=== PATIENT | female | born 1980 | race Caucasian/White ===

== ENCOUNTER → 2020-11-23 15:01 | Outpatient (CLI) | payer SELFPAY ==
--- NOTE | ~2020-11-23 | MM_ITS ---
EXAMINATION: MM screening tanya BI w zonia HISTORY: Screening TECHNIQUE: Craniocaudal and mediolateral oblique 3-D tomosynthesis images were obtained and synthetic 2-D images were generated. CAD analysis was submitted and interpreted. COMPARISON: No prior mammogram is available for comparison at this institution. BREAST PARENCHYMAL COMPOSITION: There are scattered areas of fibroglandular density. FINDINGS: There is no evidence of suspicious mass, calcification, or architectural distortion to sugg est malignancy in either breast. There has been no suspicious interval change. IMPRESSION: 1. No mammographic evidence of malignancy. 2. Recommend routine screening mammography in one year. BI-RADS Category 1: Negative Reviewed, dictated and finalized at location A.
--- NOTE | ~2020-11-23 | US_ITS ---
EXAMINATION: US pelvic complete EXAM DATE: 11/23/2020 15:22 INDICATION: N85.2 Enlarged uterus on exam. History of fibroids. TECHNIQUE: Pelvic transabdominal sonogram was performed. There are multiple grayscale and Doppler im ages available for interpretation. Comparison is made to prior examination from 09/07/2010. FINDINGS: Uterus measures 3.5 x 3.0 x 2.3 cm, anterior fundal fibroid measuring up to 3.5 cm. Endome trial stripe measures 8 mm, within normal limits. There is no free pelvic fluid. Right adnexa: The ovary measures 3.0 x 2.0 x 3.4 cm and is morphologically normal. Ovarian vascular f low confirmed. Left adnexa: The ovary measures 3.3 x 1.6 x 2.6 cm and is morphologically normal. Ovarian vascular fl ow confirmed. The fibroid above appears to have developed compared to 2010. IMPRESSION: Anterior fundal 3.5 cm fibroid. Reviewed, dictated and finalized at location A.
== END ==
PROVIDERS: Visit Provider Nurse Practitioner
DX: N85.2 Hypertrophy of uterus (principal); Z12.31 Encounter for screening mammogram for malignant neoplasm of breast; D25.9 Leiomyoma of uterus, unspecified
CPT/HCPCS: 76856; 77063; 77067

== ENCOUNTER 2023-11-04 09:49 | Emergency (ER) | payer OTHER, SELFPAY ==
[2023-11-04 10:04] VITALS: BP 156/110; PULSE 86; RESP 16; TEMP 37.2; O2SAT 100
--- NOTE | 2023-11-04 10:14 | ED.URI ---
HPI - URI/Sore Throat General Chief Complaint: Upper Respiratory Infection Stated Complaint: congestion Time Seen by Provider: 11/04/23 10:14 Source: patient and RN notes reviewed Mode of arrival: ambulatory Limitations: no limitations History of Present Illness HPI Narrative: 43 y/o female presented for c/o hoarse voice for 4 days, associated with nasal congestion, post nasal drainage causing sore throat, mild cough x2 weeks. Started with fever and chills which has improved. Endorses 1-2 days of brief improvement before symptoms returned. Denies shortness of breath, wheezing nausea, vomiting, diarrhea or lethargy. Taking Sudafed, hot tea, Delsym, alkaselzter. endorses elevated BP readings at home, and is scheduled to follow-up with her PCP within a week. MD elicited complaint: cough Related Data Home Medications Medication Instructions Recorded Confirmed lisinopril 20 mg tablet 20 mg PO DAILY 11/04/23 11/04/23 Allergies Allergy/AdvReac Type Severity Reaction Status Date / Time No Known Allergies Allergy Verified 11/04/23 10:16 Review of Systems Review of Systems: CONSTITUTIONAL: Endorses malaise, denies chills, sweats, fever EYES: Denies visual changes, redness, or discharge ENT: Reports rhinorrhea, congestion, sinus pain, sore throat CARDIOVASCULAR: Denies chest pain, palpitations, edema RESPIRATORY: Reports cough, post nasal drainage. Denies dyspnea GASTROINTESTINAL: Denies abdominal pain, nausea, vomiting, diarrhea SKIN: Denies rash or itching MUSCULOSKELETAL: Denies myalgia PMFSH Past Medical History Medical History (Updated 11/04/23 @ 10:25 by Jennifer Silva APRN) HTN (hypertension) Family History Family History Other Family history of malignant neoplasm of male breast Social History Social History Smoking status: Never smoker Second hand tobacco smoke exposure: No Alcohol intake: current Exam Narrative: GENERAL:mildly ill-appearing, nontoxic no acute distress. EYES: PERRLA, conjunctivae clear ENT: Mucous membranes moist. Mild maxillary sinus TTP. TMs pearly veronica with dull light reflex bilaterally; no tragal tenderness. Hoarse voice. Oropharynx not erythematous without lesions or exudate, no drooling, no trismus, uvula midline. No tripod positioning, muffled voice, soft palate or pharyngeal wall bulging NECK: Supple. No lymphadenopathy CHEST: Clear to auscultation, breath sounds equal. No wheezing, rhonchi, rales, or stridor. No respiratory distress, speaks in full sentences. HEART: Regular rate and rhythm. No murmur heard. SKIN: Warm, dry, no rash. NEURO: Alert and oriented x3. PSYCH: Normal mood and affect Course Course Emergency Course: Patient is aware of diagnosis, understands and agrees to treatment plan. Anticipatory guidance given. Patient agrees to follow-up as directed and is aware of reasons to seek care at the emergency department. Portions of this record may have been created with voice recognition software Level of Care: Express Care Visit Vital Signs Vital signs: Vital Signs Temperature 98.9 F 11/04/23 10:04 Pulse Rate 86 11/04/23 10:04 Respiratory Rate 16 11/04/23 10:04 Blood Pressure 156/110 H 11/04/23 10:04 Pulse Oximetry 100 11/04/23 10:04 Oxygen Delivery Room Air 11/04/23 10:04 Temperature 98.9 F 11/04/23 10:04 Pulse Rate 86 11/04/23 10:04 Respiratory Rate 16 11/04/23 10:04 Blood Pressure 156/110 H 11/04/23 10:04 Pulse Oximetry 100 11/04/23 10:04 Oxygen Delivery Room Air 11/04/23 10:04 reviewed MDM - URI/Sore Throat MDM Narrative Medical decision making narrative: BP elevated, she is following with her PCP this week regarding elevated readings. Discussed physical exam findings Consistent with bacterial sinusitis given brief improvement. Rx abx. Advised supportive measures and si
== END 2023-11-04 10:26 | disposition home or self-care (01) ==
PROVIDERS: Emergency Provider Nurse Practitioner Family; PCP Family Medicine
DX: J32.9 Chronic sinusitis, unspecified (principal); I10 Essential (primary) hypertension
CPT/HCPCS: 99213; G0463

== ENCOUNTER 2023-11-15 01:11 | Emergency (ER) | payer OTHER, SELFPAY ==
[2023-11-15 01:16] VITALS: BP 162/110; PULSE 84; RESP 16; TEMP 37; O2SAT 100
[2023-11-15 01:59] LABS: Strep Group A RT-PCR NOT DETECTED (Negative)
[2023-11-15 02:11] LABS: Influenza A QL RT-PCR Negative (Negative); Influenza B QL RT-PCR Negative (Negative); RSV RNA, RT-PCR Negative (Negative); SARS-CoV-2 RNA PCR Negative (Negative)
--- NOTE | 2023-11-15 02:53 | ED.GENADULT ---
HPI - General Adult General Chief complaint: Unspecified Stated complaint: sore throat Time Seen by Provider: 11/15/23 02:37 History of Present Illness HPI narrative: Patient is a 43-year-old female who presents the emergency department this evening complaining of a sore throat. Patient states that her symptoms started this morning when she woke up and noticed that his throat was itchy. Throughout the day, patient is sore throat continued to worse finally she decided to come to the emergency department for further evaluation. Patient states that approximately 2 weeks ago she went to an urgent care due to an upper respiratory infection and at that time she was prescribed 7 days worth of penicillin. Patient states that her symptoms improved, however, she woke up with the itchy throat and sore throat. Patient denies any sick contacts at or exposure to any COVID or flu. She denies any fevers or chills at home and is currently denying any headaches, dizziness, lightheadedness, nausea or vomiting. There are no other modifying, alleviating, or precipitating factors at this time. Related Data Home Medications Medication Instructions Recorded Confirmed lisinopril 20 mg tablet 20 mg PO DAILY 11/04/23 11/04/23 Allergies Allergy/AdvReac Type Severity Reaction Status Date / Time No Known Allergies Allergy Verified 11/04/23 10:16 Review of Systems Review of Systems: All systems are reviewed and are negative unless stated otherwise in the HPI. [facility] Past Medical History Medical History HTN (hypertension) Family History Family History Other Family history of malignant neoplasm of male breast Social History Social History Smoking status: Never smoker Second hand tobacco smoke exposure: No Alcohol intake: current Exam Narrative: General: Alert, awake, afebrile, in no acute distress. HEENT: PERRL, no rhinorrhea, no post nasal drip, pharyngeal erythema, no tonsillar abscess identified, minimal tonsillar swelling, no uvula deviation. Neck: Trachea midline, no JVD, no lymphadenopathy. Cardiovascular: Regular rate and rhythm, no murmurs, rubs or gallops, no peripheral edema. Respiratory: Clear to auscultation bilaterally, no tachypnea, no wheezing, no rhonchi, no rubs, no respiratory distress. Abdomen: Soft, nontender, nondistended, no rebound, no guarding, no peritoneal signs. Musculoskeletal: No joint swelling or deformity, normal muscle tone. Skin: No rashes or petechia, no signs of infection. Psychiatric: Alert and oriented, normal behavior and judgment for situation. Neurological: Alert and oriented to person, place, and time. Follows all commands. No focal deficits, speech is clear and fluent. Course Vital Signs Vital signs: Vital Signs Temperature 98.6 F 11/15/23 01:16 Pulse Rate 84 11/15/23 01:16 Respiratory Rate 16 11/15/23 01:16 Blood Pressure 162/110 H 11/15/23 01:16 Pulse Oximetry 100 11/15/23 01:16 Oxygen Delivery Room Air 11/15/23 01:16 Temperature 98.6 F 11/15/23 01:16 Pulse Rate 84 11/15/23 01:16 Respiratory Rate 16 11/15/23 01:16 Blood Pressure 162/110 H 11/15/23 01:16 Pulse Oximetry 100 11/15/23 01:16 Oxygen Delivery Room Air 11/15/23 01:16 Medical Decision Making MDM Narrative Medical decision making narrative: The patient was evaluated by myself in the emergency department. History is obtained from patient who is an independent historian and physical exam was performed. External medical records were reviewed at this time. Differential diagnosis considerations include tonsillitis, peritonsillar abscess, and pharyngitis. Comorbidities impacting this visit include none. I have evaluated and discussed social determinants of health with the patient that could potentially
== END 2023-11-15 03:22 | disposition home or self-care (01) ==
PROVIDERS: Emergency Provider Emergency Medicine; PCP Family Medicine
DX: J02.9 Acute pharyngitis, unspecified (principal); I10 Essential (primary) hypertension; Z20.822 Contact with and (suspected) exposure to COVID-19
CPT/HCPCS: 87637; 87651; 99283

== ENCOUNTER 2024-06-25 17:28 | Emergency (ER) | payer OTHER, SELFPAY ==
--- NOTE | ~2024-06-25 | XR_ITS ---
CHEST RADIOGRAPH, PA AND LATERAL CLINICAL HISTORY: cough . COMPARISON: None available TECHNIQUE: PA and lateral views of the chest. FINDINGS The cardiomediastinal silhouette is unremarkable. The lungs are clear. Visualized osseous structures and soft tissues are unremarkable. IMPRESSION: No focal infiltrate or effusion. Reviewed, dictated and finalized at location A. ARE OFFICER
[2024-06-25 17:37] VITALS: BP 150/105; PULSE 108; RESP 18; TEMP 36.8; O2SAT 99
--- NOTE | 2024-06-25 18:49 | ED_ITS ---
HPI - URI/Sore Throat General Chief Complaint: Upper Respiratory Infection Stated Complaint: Head congestion Time Seen by Provider: 06/25/24 18:45 History of Present Illness HPI Narrative: Patient presents with complaints sinus pain and congestion that is moving down into the chest. She reports symptoms present for co approximately 2 weeks. She has tried multiple [id number] remedies with minimal relief. She denies any fever, chills, sweats. She does report being more tired than normal, poor sleep, lack of energy and congested cough. Related Data Home Medications Medication Instructions Recorded Confirmed hydrochlorothiazide 25 mg tablet 25 mg PO DAILY 06/25/24 06/25/24 losartan 100 1 tablet PO DAILY 06/25/24 06/25/24 mg-hydrochlorothiazide 25 mg tablet Allergies Allergy/AdvReac Type Severity Reaction Status Date / Time No Known Allergies Allergy Verified 06/25/24 17:35 Review of Systems Review of Systems: All systems reviewed & are unremarkable except as noted in HPI and below Constitutional: Constitutional: Reports no additional constitutional complaints ENT: Reports system reviewed and no additional complaints, except as documented, Reports as per HPI, Reports headache(s), Reports nasal congestion, Reports nasal discharge, Reports sinus pain, Reports sinus pressure and Reports sore throat Cardiovascular: Cardiovascular: Reports no additional cardiovascular complaints Respiratory: Respiratory: Reports no additional respiratory complaints, Reports chest congestion, Reports cough, Reports pain with cough and Reports wheezing Gastrointestinal: Gastrointestinal: Reports no additional gastrointestinal complaints PMFSH Past Medical History Medical History HTN (hypertension) Family History Family History Other Family history of malignant neoplasm of male breast Social History Social History Smoking status: Never smoker Second hand tobacco smoke exposure: No Alcohol intake: current Comments At the time of my signature, I reviewed and agree with the nursing past medical, surgical, social, and family history. There is no relevant family history pertinent to the patient complaint. Exam Const: General: cooperative, no acute distress, alert and awake Orientation/consciousness: oriented to person, oriented to place and oriented to time HENMT: Head: normal to inspection Face/Nose/Sinus: Abnormal mucous membranes and turbinates present boggy and erythematous, Nasal discharge present, sinus tenderness and Facial tenderness on exam of face and sinuses Mouth: Yes moist mucous membranes Resp: Effort & Inspection: normal respiratory effort and able to speak in complete sentences Auscultation: clear to auscultation bilaterally, no crackles, no rales, no rhonchi and wheezes scattered wheezes Cardio: Palpation: normal PMI Rate: regular rate Rhythm: regular rhythm Heart sounds: S1 normal heart sound present and S2 normal heart sound present Neuro: General: oriented to person, oriented to place and oriented to time Cranial nerves: Yes CN's II-XII intact bilaterally Psych: Appearance: grossly normal Thought process: Normal thought process present Insight: Good insight present (Psych) Judgement: Good judgement present (Psych) Course Course Level of Care: Express Care Visit Vital Signs Vital signs: Vital Signs Temperature 98.2 F 06/25/24 17:37 Pulse Rate 108 H 06/25/24 17:37 Respiratory Rate 18 06/25/24 17:37 Blood Pressure 150/105 H 06/25/24 17:37 Pulse Oximetry 99 06/25/24 17:37 Oxygen Delivery Room Air 06/25/24 17:37 Temperature 98.2 F 06/25/24 17:37 Pulse Rate 108 H 06/25/24 17:37 Respiratory Rate 18 06/25/24 17:37 Blood Pressure 150/105 H 06/25/24 17:37 Pulse Oximetry 99 06/25/24 17:37 Oxygen Delivery Room Air 06/25/24 17:37 MDM - URI/Sore Throat MDM Narrative Medical decision making narrative: Patient with 2 weeks of symptoms, negative chest x-ray. Treat for sinusitis. Nasally voice, swollen turbinates, mild wheezes. Start Augmentin, prednisone, Tessalon. Discharge instructions reviewed with patient, as well as provided in writing per nursing staff. The instructions also include specific and strict return/GO TO THE ER as well as f/u information. All questions have been answered, and the patient deny any further questions with discharge and discharge plan. Some parts of this dictation were generated by voice recognition software and may contain typographical and/or grammatical inaccuracies. Differential Diagnosis Differential diagnosis: Likely upper respiratory infection, otitis media, sinusitis, viral infection, bronchitis, influenza and pharyngitis Medical Records Attestation: I reviewed the patient's medical records. Imaging Data Attestation: I personally reviewed and interpreted this imaging study as follows: My impression: No acute process noted Radiologist's impression: [facility] [address] [place] [address] XRay Report Signed Patient: Shruti Milan : 1980 MR#: [id number] Age: 44 Acct:[id number] Loc: [facility] ADM Date: 06/25/24Attending Dr: Ordering Physician: Shaye Khalil FNP Date of Service: 06/25/24 Procedure(s): XR chest 2V Accession Number(s): [id number] cc: Shaye Khalil FNP; UNKNOWN,DOCTOR~ CHEST RADIOGRAPH, PA AND LATERAL CLINICAL HISTORY: cough . COMPARISON: None available TECHNIQUE: PA and lateral views of the chest. FINDINGS The cardiomediastinal silhouette is unremarkable. The lungs are clear. Visualized osseous structures and soft tissues are unremarkable. IMPRESSION: No focal infiltrate or effusion. Reviewed, dictated and finalized at location A. ACULTURE CONTRACTOR Dictated By: Lyla Armstrong MD 06/25/241833 Signed By: <Electronically signed by Lyla Armstrong MD in OV> 06/25/241834 Discharge Plan Discharge Clinical Impression: Sinusitis Qualifiers: Sinusitis location: frontal Chronicity: acute Recurrence: not specified as recurrent Qualified Code(s): J01.10 - Acute frontal sinusitis, unspecified Patient Disposition: Home, Self-Care Condition: Stable Instructions: Antibiotic Form, Sinusitis (ED) Additional Instructions: Take medications as prescribed. Follow with primary care provider. Emergency department for new or worse symptoms Patient Language: Greenlandic Prescriptions: New amoxicillin-pot clavulanate 875-125 mg tablet 1 tablet PO Q12H Qty: 20 0RF prednisone 50 mg tablet 50 mg PO DAILY Qty: 5 0RF benzonatate 200 mg capsule 200 mg PO TID PRN (Reason: cough) Qty: 30 0RF No Action losartan-hydrochlorothiazide 100-25 mg tablet 1 tablet PO DAILY hydrochlorothiazide 25 mg tablet 25 mg PO DAILY Follow-up/Referrals: UNKNOWN,DOCTOR [Primary Care Provider] - 2 Weeks Time of Disposition: 18:59
== END 2024-06-25 19:05 | disposition home or self-care (01) ==
PROVIDERS: Emergency Provider Nurse Practitioner Family
DX: J01.10 Acute frontal sinusitis, unspecified (principal); I10 Essential (primary) hypertension
CPT/HCPCS: 71046; 99213; G0463

== ENCOUNTER 2024-07-23 12:31 | Outpatient (CLI) | payer OTHER, SELFPAY ==
--- NOTE | ~2024-07-23 | MM_ITS ---
EXAMINATION: MM screening tanya BI w zonia HISTORY: Screening TECHNIQUE: Craniocaudal and mediolateral oblique 3-D tomosynthesis images were obtained and synthetic 2-D images were generated. CAD analysis was submitted and interpreted. COMPARISON: 11/23/2020 BREAST PARENCHYMAL COMPOSITION: Not dense: There are scattered areas of fibroglandular density. FINDINGS: There are developing asymmetries in the upper central aspect of the right breast, middle th ird. The left breast is stable without evidence for malignancy. IMPRESSION: 1. Developing right breast asymmetries. 2. Additional mammographic views and possible breast ultrasound are recommended. BI-RADS Category 0: Incomplete: Needs additional imaging evaluation. Reviewed, dictated and finalized at location B. MOBILE REPAIR SERVICE ESTIMATOR IMPRESSION: 1. Developing right breast asymmetries. 2. Additional mammographic views and possible breast ultrasound are recommended . BI-RADS Category 0: Incomplete: Needs additional imaging evaluation.
== END 2024-07-23 12:32 | disposition home or self-care (01) ==
LOC: MICIMG 12:31
PROVIDERS: PCP Nurse Practitioner Women's Health; Visit Provider Nurse Practitioner Women's Health
DX: Z12.31 Encounter for screening mammogram for malignant neoplasm of breast (principal); R92.8 Other abnormal and inconclusive findings on diagnostic imaging of breast
CPT/HCPCS: 77063; 77067